=== PATIENT | female | born 1990 | race Caucasian/White ===

== ENCOUNTER 2017-04-03 08:18 | Inpatient (IN) | payer OTHER ==
[2017-04-03] MEDS ORDERED: CARBOPROST 250 MCG/ML SOL IM PRN (08:29)
[2017-04-03] MEDS ORDERED: OXYTOCIN 10000 MU/ML SOL IM PRN (08:29)
[2017-04-03] MEDS ORDERED: METHYLERGONOVINE MALEATE 0.2 MG/ML SOL IM PRN (08:29)
[2017-04-03] MEDS ORDERED: FENTANYL 100MCG/2ML SOL IV PRN (08:29)
[2017-04-03] MEDS ORDERED: MEPIVACAINE HCL 1% MPF 30 ML SOL INFIL PRN (08:29)
[2017-04-03] MEDS ORDERED: LACTATED RINGERS 1,000 ML IV PRN (08:29)
[2017-04-03 08:55] LABS: BASOPHILS % (AUTO) 1 % (0-3); EOSINOPHILS % (AUTO) 1 % (0-9); HEMATOCRIT 33 % (35-47); MEAN CORPUSCULAR HGB CONC 34.8 gm/dl (32.0-36.0); MEAN CORPUSCULAR VOLUME 84 fL (81-99); MONOCYTES % (AUTO) 7.5 % (0-12); NEUTROPHILS % (AUTO) 64.5 % (37-80)
[2017-04-03] MEDS: SODIUM CHLORIDE 0.9% FLUSH 10 ML SOL IV SCH ×3 (09:00→23:53)
[2017-04-03] MEDS: SODIUM CHLORIDE 0.9% FLUSH 10 ML SOL IV PRN ×2 (11:55→21:09)
[2017-04-03] MEDS ORDERED: NALOXONE HYDROCHLORIDE 0.4 MG/ML SOL IV PRN (12:27)
[2017-04-03] MEDS ORDERED: DIPHENHYDRAMINE 50 MG/ML SOL IV PRN (12:27)
[2017-04-03] MEDS ORDERED: EPHEDRINE SULFATE 50 MG/ML SOL IV PRN (12:27)
[2017-04-03] MEDS ORDERED: NALBUPHINE HCL 20 MG/ML SOL IV PRN (12:27)
[2017-04-03] MEDS: LACTATED RINGERS 1,000 ML IV SCH ×4 (12:40→23:07)
[2017-04-03] MEDS ORDERED: LIDOCAINE HCL 2% MPF SOL ONE ×2 (12:50→19:30)
[2017-04-03] MEDS ORDERED: ROPIVACAINE HYDROCHLORIDE 5 MG/ML SOL ONE (13:21)
[2017-04-03] MEDS ORDERED: FENTANYL 250 MCG/ 5ML SOL ONE (13:21)
[2017-04-03] MEDS ORDERED: FLEET ENEMA PR PRN (20:41)
[2017-04-03] MEDS ORDERED: WITCH HAZEL 1 EA PAD TOP PRN (20:41)
[2017-04-03] MEDS ORDERED: BENZOCAINE/MENTHOL 1 SPR TOP PRN (20:41)
[2017-04-03] MEDS ORDERED: BISACODYL 10 MG SUP PR PRN (20:41)
[2017-04-03] MEDS ORDERED: METHYLERGONOVINE MALEATE 0.2 MG TAB PO PRN (20:41)
[2017-04-03] MEDS ORDERED: TEMAZEPAM 15MG 15 MG CAP PO PRN (20:41)
[2017-04-03] MEDS: DOCUSATE SODIUM 100 MG SGL PO SCH (22:44)
[2017-04-03] MEDS: IBUPROFEN 600 MG TAB PO PRN (23:39)
[2017-04-04] MEDS: APAP/HYDROCODONE 325/5 TAB PO PRN ×5 (03:58→22:35)
[2017-04-04] MEDS ORDERED: LACTATED RINGERS 1,000 ML IV SCH (05:00)
[2017-04-04] MEDS ORDERED: LIDOCAINE HCL 2% MPF SOL ONE (05:09)
[2017-04-04] MEDS ORDERED: ONDANSETRON HCL 4 MG/2 ML SOL ONE (05:11)
[2017-04-04] MEDS: BUPIVACAINE HCL 0.5% MPF 10 ML SOL ONE ×2 (06:14→06:30)
[2017-04-04] MEDS: IBUPROFEN 600 MG TAB PO PRN ×2 (09:34→19:48)
[2017-04-04] MEDS: DOCUSATE SODIUM 100 MG SGL PO SCH ×2 (09:35→21:17)
[2017-04-04] MEDS: SODIUM CHLORIDE 0.9% FLUSH 10 ML SOL IV SCH ×2 (11:06→18:45)
[2017-04-04] MEDS ORDERED: PNEUMOCOCCAL VACCINE 0.5 ML SOL IM ONE (17:11)
[2017-04-05] MEDS: IBUPROFEN 600 MG TAB PO PRN (02:17)
[2017-04-05 06:03] VITALS: BP 125/79; PULSE 71; RESP 18; TEMP 97.9; O2SAT 98
[2017-04-05] MEDS: APAP/HYDROCODONE 325/5 TAB PO PRN (08:19)
[2017-04-05] MEDS: DOCUSATE SODIUM 100 MG SGL PO SCH (08:19)
== END 2017-04-05 10:40 | disposition home or self-care (01) | DRG 541 ==
LOC: OBSVTOIN 08:18 → INTOOBSV 08:18 → OB 08:18 → UNDOADMOB 08:18
PROVIDERS: ADMIT Emergency Medicine; ATTEND Emergency Medicine
PROC: 10E0XZZ Delivery of Products of Conception, External Approach (ICD-10-PCS; principal; 2017-04-03)
PROC: 10907ZC Drainage of Amniotic Fluid, Therapeutic from Products of Conception, Via Natural or Artificial Opening (ICD-10-PCS; 2017-04-03)
PROC: 0UB70ZZ Excision of Bilateral Fallopian Tubes, Open Approach (ICD-10-PCS; 2017-04-04)
DX: O80 Encounter for full-term uncomplicated delivery (principal); Z30.2 Encounter for sterilization; Z37.0 Single live birth; Z3A.40 40 weeks gestation of pregnancy
CPT/HCPCS: 36415; 59025; 85018; 85025; 90732; J0670; J2405; J2590; J2795; J3010; G0008

== ENCOUNTER 2017-05-09 17:42 | Emergency (ER) | payer OTHER ==
[2017-05-09 17:52] VITALS: PULSE 113; RESP 20; TEMP 97.3; O2SAT 100
[2017-05-09 18:21] LABS: BASOPHILS % (AUTO) 1 % (0-3); EOSINOPHILS % (AUTO) 1 % (0-9); HEMATOCRIT 40 % (35-47); MEAN CORPUSCULAR HGB CONC 34.2 gm/dl (32.0-36.0); MEAN CORPUSCULAR VOLUME 82 fL (81-99); MONOCYTES % (AUTO) 6.1 % (0-12); NEUTROPHILS % (AUTO) 49.9 % (37-80)
[2017-05-09 18:31] VITALS: BP 132/90
== END 2017-05-09 19:49 | disposition home or self-care (01) ==
LOC: ED 17:42
DX: G97.1 Other reaction to spinal and lumbar puncture (principal); M79.604 Pain in right leg; J20.9 Acute bronchitis, unspecified
CPT/HCPCS: 36415; 71020; 84443; 85025; 85378; 99282